=== PATIENT | female | born 1990 | race Hispanic/Latino ===

== ENCOUNTER → 2018-05-19 | Day surgery (SDC) | payer BC ==
[~2018-05-19] MED LIST: BIRTH CONTROL PO; FENTANYL CITRATE/PF 100MCG/2 ML INJ ONE; METOCLOPRAMIDE H5 MG PO; MIDAZOLAM HCL 2 MG/2 ML VIAL ONE; PANTOPRAZOLE 40 MG 10ML VIAL ONE; PROPOFOL IV EMULSION 10 MG/ML 50 ML VIAL ONE; SUCRALFATE1 GM PO
--- OUTSIDE RECORDS SUMMARY | 2018-05-19 09:10 | XMS REPORT ---
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 Allergies, Adverse Reactions, Alerts Allergy Name Allergy Type Status Severity Reaction(s) Onset Date Inactive Date Treating Clinician Comments No Known Allergies DA Active U 2015-08-01 00:00:00 Medications This patient has no known medications.
[2018-05-19 12:44] VITALS: BP 107/89
--- NOTE | 2018-05-19 13:41 | Operative Report ---
DATE OF PROCEDURE: May 19, 2018 REFERRING PHYSICIAN: Dr. Christina Miranda PROCEDURE PERFORMED: Esophagogastroduodenoscopy with biopsies. INDICATIONS FOR EGD: Upper abdominal pain and pain exacerbated with meals. MEDICATION: Patient was done under MAC. Please see anesthesiologist's note. PROCEDURE: With the patient in the left lateral decubitus position, the flexible fiberoptic Olympus gastroscope was introduced into the esophagus under direct visualization without any difficulty. There was some patchy erythema noted in the distal esophagus. The scope was then advanced with ease into the stomach. Mucosa overlying the antrum and the body revealed some diffuse erythema and low-grade to moderate edema, and biopsies were obtained and sent to stain for H. pylori. The pylorus was of normal contour and shape. It was intubated with ease. The scope was advanced all the way to the 2nd portion of the duodenum. The scope was then withdrawn slowly. Some of the duodenal folds in the proximal 2nd portion appeared somewhat flattened, and biopsies were obtained to rule out sprue. The scope was then withdrawn back into the stomach and retroflexed. A minute nodule was noted in the cardia that was biopsied. The scope was then straightened out. It was subsequently withdrawn. Patient tolerated the procedure well. IMPRESSION 1. Distal esophagitis. 2. Minute nodule, cardia, biopsied. 3. Gastritis, biopsied. Biopsies sent to stain for Helicobacter pylori. 4. Rule out sprue. PLAN: Follow up histology. Initiate Protonix 40 mg 1 p.o. q.a.m. a.c. Continue Carafate 1 g p.o. a.c. t.i.d. and at bedtime. If the patient persists with symptoms, would proceed with gallbladder workup. Job#: [id number] RI cc:CHRISTINA MIRANDA MD
== END | disposition home or self-care (01) ==
LOC: OR 09:05
PROVIDERS: ATTEND Internal Medicine Gastroenterology
DX: K29.00 Acute gastritis without bleeding (principal); R10.84 Generalized abdominal pain; R11.0 Nausea; K21.0 Gastro-esophageal reflux disease with esophagitis
CPT/HCPCS: 43239; 81025; J2250